=== PATIENT | female | born 2000 | race Caucasian/White ===

== ENCOUNTER 2019-01-15 01:27 | Outpatient (CLI) | payer MEDICAID, SELFPAY ==
[2019-01-15 14:35] LABS: HCT 38.5 % (36.0-46.0); Mean Corp. HGB Concentration 33.8 g/dL (32.0-36.0); Mean Corpuscular Hemoglobin 33.9 pg (27.0-33.0); Mean Corpuscular Volume 100.3 fL (80-95); Mean Platelet Volume 8.9 fL (8.0-11.0); Platelet Count 300 x1000/uL (130-400); RBC 3.84 m/cumm (4.00-5.20); RBC Distribution Width 12.8 % (11.7-14.6); White Blood Cell Count 7.13 k/cumm (4.4-10.8)
[2019-01-15 15:19] LABS: Calculated LDL 95 mg/dL; Cholesterol 179 mg/dL (50-200); HDL Cholesterol 63 mg/dL (40-60); TSH 0.79 uIU/mL (0.36-3.74); Triglyceride 109 mg/dL (30-150)
[2019-01-15 16:09] LABS: FREE T4 0.82 ng/dL (0.76-1.46)
[2019-01-15 17:45] LABS: Hemoglobin A1C 4.8 % (4.5-6.2)
== END 2019-01-15 01:47 ==
PROVIDERS: PCP Pediatrics; Visit Provider Pediatrics
DX: L83 Acanthosis nigricans (principal); Q90.9 Down syndrome, unspecified; Z68.54 Body mass index [BMI] pediatric, 95th percentile for age to less than 120% of the 95th percentile for age
CPT/HCPCS: 36415; 80061; 85027; 83036; 84439; 84443

== ENCOUNTER 2020-10-06 07:50 | Outpatient (CLI) | payer MEDICARE, MEDICAID, SELFPAY ==
[2020-10-06 11:18] LABS: Abs Immature Grans 0.02 10^3/uL (0.0-0.06); Absolute Basophil Count 0.05 10^3/uL (0.0-0.2); Absolute Eosinophil Count 0.03 10^3/uL (0.0-0.7); Absolute Lymphocyte Count 3.61 10^3/uL (1.2-3.4); Absolute Monocyte Count 0.58 10^3/uL (0.1-0.8); Absolute Neutrophil Count 3.76 10^3/uL (1.2-6.7); Basophils % 0.6; Eosinophils % 0.4; HCT 37.6 % (36.0-46.0); HGB 12.9 g/dL (11.2-15.7); Immature Grans % 0.2; Lymphocytes % 44.8; MCH 34.3 pg (27.0-33.0); MCHC 34.3 % (32.0-36.0); MPV 9.3 fL (8.0-11.0); Monocytes % 7.2; Neutrophils % 46.8; Nucleated RBC 0 %; Platelet Count 306 10^3/uL (130-400); RBC 3.76 10^6/uL (3.93-5.22); RDW 12.6 % (11.7-14.6); RDW-SD 45.8 fL; WBC 8.05 10^3/uL (4.4-10.8)
[2020-10-06 12:10] LABS: TSH (W/Ref FT4) 0.25 uIU/mL (0.36-3.74)
[2020-10-06 12:27] LABS: FREE T4 0.88 ng/dL (0.76-1.46)
== END 2020-10-06 07:51 | disposition home or self-care (01) ==
PROVIDERS: Visit Provider Pediatrics
DX: Q90.9 Down syndrome, unspecified (principal); E03.9 Hypothyroidism, unspecified
CPT/HCPCS: 36415; 84439; 84443; 85025

== ENCOUNTER 2022-01-10 01:26 | Outpatient (CLI) | payer MEDICARE, MEDICAID, SELFPAY ==
[2022-01-10 12:47] LABS: TSH 1.09 uIU/mL (0.36-3.74)
[2022-01-10 13:09] LABS: FREE T4 0.87 ng/dL (0.76-1.46)
== END 2022-01-10 01:27 | disposition home or self-care (01) ==
PROVIDERS: PCP Family Medicine; Visit Provider Pediatrics
DX: E03.9 Hypothyroidism, unspecified (principal)
CPT/HCPCS: 36415; 84439; 84443

== ENCOUNTER 2023-02-14 04:01 | Outpatient (CLI) | payer MEDICARE, MEDICAID, SELFPAY ==
[2023-02-14 12:24] LABS: Anion Gap 8.3 mmol/L (3-11); BUN 13 mg/dL (7-18); CO2 25.7 mmol/L (21.0-32.0); CREATININE 0.6 mg/dL (0.55-1.02); Calcium 9.3 mg/dL (8.5-10.1); Calculated LDL 93 mg/dL (<100); Chloride 106 mmol/L (98-107); Cholesterol 167 mg/dL (<200); Estimated GFR 128.46 (mL/min/1.73m2); Glucose 97 mg/dL (74-106); HDL Cholesterol 62 mg/dL (40-60); Potassium 3.9 mmol/L (3.5-5.1); Sodium 140 mmol/L (136-145); TSH (W/Ref FT4) 0.84 uIU/mL (0.36-3.74); Triglyceride 61 mg/dL (<150)
== END 2023-02-14 04:02 | disposition home or self-care (01) ==
LOC: LBO 04:01
PROVIDERS: PCP Family Medicine; Visit Provider Family Medicine
DX: Z00.01 Encounter for general adult medical examination with abnormal findings (principal); Z13.6 Encounter for screening for cardiovascular disorders; E03.9 Hypothyroidism, unspecified; I10 Essential (primary) hypertension
CPT/HCPCS: 36415; 80048; 80061; 84443

== ENCOUNTER 2025-03-04 01:54 | Outpatient (CLI) | payer MEDICARE, MEDICAID, SELFPAY ==
[2025-03-04 14:06] LABS: TSH (W/Ref FT4) 0.73 uIU/mL (0.55-4.78)
== END 2025-03-04 01:55 | disposition home or self-care (01) ==
PROVIDERS: PCP Family Medicine; Visit Provider Family Medicine
DX: E03.1 Congenital hypothyroidism without goiter (principal); E03.9 Hypothyroidism, unspecified
CPT/HCPCS: 36415; 36416; 84443